=== PATIENT | male | born 1995 | race Caucasian/White ===

== ENCOUNTER 2023-12-07 23:09 | Emergency (ER) | payer SELFPAY ==
[2023-12-07] MEDS ORDERED: NA CHLORIDE 0.9% 1,000 ML ONE (23:43)
[2023-12-07 23:46] LABS: Absolute Basophils 0.1 K/uL (0-0.5); Absolute Lymphocytes (CBC) 1.9 K/uL (0.7-4.9); Absolute Monocytes 0.7 K/uL (0.1-1.3); Absolute Neutrophil 10.4 K/uL (1.8-8.0); Basophils % 0.8 % (0-1.3); Eosinophils % 0.2 % (0-4.4); Hemoglobin 15.5 g/dL (13.6-17.9); Lymphocytes % 14.2 % (15.3-44.8); MCH 29.2 pg (27.0-35.0); MCHC 33.7 g/dL (32.0-36.0); MCV 86.7 fL (80-100); MPV 9.6 fL (7.6-11.3); Monocytes % 5.4 % (3.3-12.3); Neutrophils % 79.4 % (41.7-73.7); Nucleated Red Blood Cells % 0.1 % (0-0); Platelets 213 thou/uL (152-406); RBC Red Blood Cell Count 5.31 M/uL (4.33-5.43); Red Cell Distribution Width 12.8 % (12.1-15.2)
[2023-12-07 23:47] LABS: Specific Gravity 1.019 (1.005-1.030); Urine Bilirubin NEGATIVE (Negative); Urine Blood Negative (Negative); Urine Clarity Clear (Clear); Urine Color Light-Yellow (Yellow); Urine Glucose NEGATIVE (Negative); Urine Ketones 1+ (Negative); Urine Microscopic Reflex YN NO UMIC; Urine Nitrite NEGATIVE (Negative); Urine Protein NEGATIVE (Negative); Urine Urobilinogen Normal (Normal); Urine pH 5.5 (5.0-7.0)
[2023-12-08 00:04] LABS: Albumin 4.7 g/dL (3.4-5.0); Albumin/Globulin Ratio 1.5 (1.1-1.8); Bilirubin Total 0.8 mg/dL (0.2-1.0); Globulin 3.2 g/dL (2.3-3.5); Protein, Total 7.9 g/dL (6.4-8.2)
--- NOTE | 2023-12-08 01:22 | ER ---
Nurse's Notes [facility] Name: Prieto Pike Age: 28 yrs Sex: Male : 1995 Arrival Date: 12/07/2023 Time: 23:09 Bed 19 Private MD: Diagnosis: Unspecified renal colic;Left sided colitis Presentation: 12/06 23:17 Chief complaint: Patient states: lower abdominal pain. Coronavirus screen: At this as6 time, the client does not indicate any symptoms associated with coronavirus-19. Ebola Screen: No symptoms or risks identified at this time. Initial Sepsis Screen: Does the patient meet any 2 criteria? No. Patient's initial sepsis screen is negative. Does the patient have a suspected source of infection? No. Patient's initial sepsis screen is negative. Risk Assessment: Do you want to hurt yourself or someone else? Patient reports no desire to harm self or others. Onset of symptoms was December 06, 2023. 23:17 Method Of Arrival: Ambulatory as6 23:17 Acuity: ABIGAIL 3 as6 Historical: - Allergies: 23:19 No Known Allergies; as6 - PMHx: 23:19 GERD; as6 - PSHx: 23:19 Appendectomy; as6 - Immunization history:: Adult Immunizations up to date. - Infectious Disease History:: Denies. - Social history:: Smoking status: Patient denies any tobacco usage or history of. Screenin:[facility] ED Fall Risk Assessment (Adult) History of falling in the last 3 months, ha1 including since admission No falls in past 3 months (0 pts) Confusion or Disorientation No (0 pts) Intoxicated or Sedated No (0 pts) Impaired Gait No (0 pts) Mobility Assist Device Used No (0 pt) Altered Elimination No (0 pt) Score/Fall Risk Level 0 - 2 = Low Risk Oriented to surroundings, Maintained a safe environment, Educated pt \T\ family on fall prevention, incl call for assistance when getting out of bed, Hourly rounding (assess needs \T\ fall precautionary measures) done. Abuse screen: Denies threats or abuse. Denies injuries from another. Nutritional screening: No deficits noted. Tuberculosis screening: No symptoms or risk factors identified. Assessment: 23:20 General: Appears uncomfortable, Behavior is calm, cooperative. Pain: Complains of pain ha1 in pelvis Pain radiates to right mid back Pain currently is 7 out of 10 on a pain scale. Quality of pain is described as aching. Neuro: Level of Consciousness is awake, alert, obeys commands, Oriented to person, place, time, situation. Cardiovascular: Capillary refill < 3 seconds Patient's skin is warm and dry. Respiratory: Airway is patent Respiratory effort is even, unlabored, Respiratory pattern is regular, symmetrical. GI: Abdomen is round non-distended, Bowel sounds present X 4 quads. Abd is soft and non tender X 4 quads. Reports lower abdominal pain, cramping. : Urine is clear. Derm: Skin is pink, warm \T\ dry. Musculoskeletal: Circulation, motion, and sensation intact. 12/07 00:11 Reassessment: going to CT. ha1 00:29 Reassessment: back from CT. ha1 01:00 Reassessment: Patient and/or family updated on plan of care and expected duration. Pain ha1 level reassessed. Patient is alert, oriented x 3, equal unlabored respirations, skin warm/dry/pink. Patient states feeling better. Patient states symptoms have improved. Vital Signs: 12/06 23:17 BP 150 / 94; Pulse 88; Resp 18 S; Temp 97.5(TE); Pulse Ox 98% on R/A; Weight 81.65 kg as6 (R); Height 5 ft. 5 in. (R); Pain 5/10; 12/07 00:00 BP 131 / 80; Pulse 96; Resp 18 S; Pulse Ox 98% on R/A; ha1 01:00 BP 133 / 87; Pulse 92; Resp 17 S; Pulse Ox 99% on R/A; ha1 12/06 23:17 Body Mass Index 29.95 (81.65 kg, 165.1 cm) as6 12/06 23:17 Pain Scale: Adult as6 ED Course: 12/06 23:15 Patient arrived in ED. im 23:17 Arm band placed on. as6 23:19 Triage completed. as6 23:20 Terri Gray PA-C is PHCP. sb4 23:20 Perry Bland MD is Attending Physician. sb4 23:20 Patient has correct armband on for positive identification. Placed in gown. Bed in low ha1 position. Call light in reach. Side rails up X 1. 23:24 Fabienne Kong, RN is Primary Nurse. ha1 23:38 CBC with Diff Sent. ha1 23:38 CMP Sent. ha1 23:38 Lipase Sent. ha1 23:38 Urinalysis w/ reflexes Sent. ha1 23:40 Inserted saline lock: 20 gauge in left antecubital area, using aseptic technique. Blood ha1 collected. 12/07 00:24 CT Abd/Pelvis - IV Contrast Only In Process Unspecified. EDMS 01:32 No provider procedures requiring assistance completed. IV discontinued, intact, ha1 bleeding controlled, No redness/swelling at site. Pressure dressing applied. 01:33 Provided Education on: follow ups . ha1 Administered Medications: 12/06 23:47 Drug: NS 0.9% IV 1000 ml IV at 1 bolus Per protocol; 1000 mL bolus Route: IV; Rate: 1 ha1 bolus; Site: left antecubital; 12/07 01:00 Follow up: Response: No adverse reaction; IV Status: Completed infusion; IV Intake: ha1 1000ml 01:20 Drug: Ketorolac IVP 30 mg IVP once Route: IVP; Site: right antecubital; ha1 01:30 Follow up: Response: No adverse reaction; Marked relief of symptoms ha1 Medication: 12/06 23:52 VIS not applicable for this client. ha1 Intake: 12/07 01:00 IV: 1000ml; Total: 1000ml. ha1 Outcome: 01:21 Discharge ordered by . sb4 01:32 Discharged to home ambulatory, ha1 01:32 Condition: stable 01:32 Discharge instructions given to patient, Instructed on discharge instructions, follow up and referral plans. Demonstrated understanding of instructions, follow-up care, medications, Prescriptions given X 2, 01:33 Patient left the ED. ha1 Signatures: Dispatcher [employer] EDNC Freddie Alicea RN RN as6 Fabienne Kong RN RN ha1 Terri Gray, PAEdinC PAFatuma sb4 Obdulia Daniels
--- NOTE | 2023-12-08 01:22 | EDPHYS ---
Physician Documentation [facility] Name: Prieto Pike Age: 28 yrs Sex: Male : 1995 Arrival Date: 12/07/2023 Time: 23:09 Bed 19 Private MD: ED Physician Perry Bland HPI: 12/06 23:34 This 28 yrs old Male presents to ER via Ambulatory with complaints of Abdominal Pain, sb4 Groin Pain. 23:34 The patient presents with abdominal pain in the lower abdomen. Onset: The sb4 symptoms/episode began/occurred yesterday. The symptoms do not radiate. Associated signs and symptoms: none. The patient has not experienced similar symptoms in the past. patient reports vague lower abdominal pain that is not associated with any other signs/symptoms. states he was recently treated for non STI related epididymitis with doxycycline, testicular pain has since improved. Historical: - Allergies: 23:19 No Known Allergies; as6 - PMHx: 23:19 GERD; as6 - PSHx: 23:19 Appendectomy; as6 - Immunization history:: Adult Immunizations up to date. - Infectious Disease History:: Denies. - Social history:: Smoking status: Patient denies any tobacco usage or history of. ROS: 23:34 Constitutional: Negative for fever, chills, and weight loss, sb4 23:34 Abdomen/GI: Positive for abdominal pain, 23:34 All other systems are negative, Exam: 23:34 Constitutional: This is a well developed, well nourished patient who is awake, alert, sb4 and in no acute distress. Head/Face: Normocephalic, atraumatic. Eyes: Extra-ocular motions intact. Periorbital areas with no swelling, redness, or edema. ENT: Mucous membranes moist. Cardiovascular: Regular rate and rhythm with a normal S1 and S2. Respiratory: Lungs have equal breath sounds bilaterally, clear to auscultation and percussion. No rales, rhonchi or wheezes noted. No increased work of breathing, no retractions or nasal flaring. Abdomen/GI: Soft, non-tender, no distension. Skin: Warm, dry with normal turgor. Normal color with no rashes, no lesions, and no evidence of cellulitis. MS/ Extremity: Pulses equal, no cyanosis. Neurovascular intact. Full, normal range of motion. Neuro: Awake and alert, GCS 15, oriented to person, place, time, and situation. Motor strength 5/5 in all extremities. Sensory grossly intact. Vital Signs: 23:17 BP 150 / 94; Pulse 88; Resp 18 S; Temp 97.5(TE); Pulse Ox 98% on R/A; Weight 81.65 kg as6 (R); Height 5 ft. 5 in. (R); Pain /; 12/07 00:00 BP 131 / 80; Pulse 96; Resp 18 S; Pulse Ox 98% on R/A; ha1 01:00 BP 133 / 87; Pulse 92; Resp 17 S; Pulse Ox 99% on R/A; ha1 12/06 23:17 Body Mass Index 29.95 (81.65 kg, 165.1 cm) as6 12/06 23:17 Pain Scale: Adult as6 MDM: 12/06 23:20 Patient medically screened. sb4 12/07 01:20 Data reviewed: vital signs, nurses notes, lab test result(s), radiologic studies, and sb4 as a result, I will discharge patient. Counseling: I had a detailed discussion with the patient and/or guardian regarding the historical points, exam findings, and any diagnostic results supporting the discharge/admit diagnosis, lab results, radiology results, to return to the emergency department if symptoms worsen or persist or if there are any questions or concerns that arise at home. 12/06 23:33 Order name: CBC with Diff; Complete Time: 23:59 sb4 12/06 23:33 Order name: CMP; Complete Time: 00:05 sb4 12/06 23:33 Order name: Lipase; Complete Time: 00:05 sb4 12/06 23:33 Order name: Urinalysis w/ reflexes; Complete Time: 23:59 sb4 12/06 23:33 Order name: CT Abd/Pelvis - IV Contrast Only sb4 12/06 23:33 Order name: IV Saline Lock; Complete Time: 23:38 sb4 12/06 23:33 Order name: Labs collected and sent; Complete Time: 23:38 sb4 Administered Medications: 12/06 23:47 Drug: NS 0.9% IV 1000 ml IV at 1 bolus Per protocol; 1000 mL bolus Route: IV; Rate: 1 ha1 bolus; Site: left antecubital; 12/07 01:00 Follow up: Response: No adverse reaction; IV Status: Completed infusion; IV Intake: ha1 1000ml 01:20 Drug: Ketorolac IVP 30 mg IVP once Route: IVP; Site: right antecubital; ha1 01:30 Follow up: Response: No adverse reaction; Marked relief of symptoms ha1 Disposition: 03:15 Co-signature as Attending Physician, Perry Bland MD I agree with the assessment sp4 and plan of care. I reviewed the patient's care provided by the Advanced Practice Provider and agree with the diagnosis and treatment plan. Disposition Summary: 12/08/23 01:21 Discharge Ordered Notes: Location: Home sb4 Problem: new sb4 Symptoms: have improved sb4 Condition: Stable sb4 Diagnosis - Unspecified renal colic sb4 - Left sided colitis sb4 Followup: sb4 - With: Emergency Department - When: As needed - Reason: Trouble breathing, Worsening of condition Discharge Instructions: - Discharge Summary Sheet sb4 - Kidney Stones sb4 - Colitis sb4 Forms: - Work release form ha1 - Antibiotic Education sb4 - Patient Portal Instructions sb4 - Leadership Thank You Letter sb4 Prescriptions: - Flagyl 500 mg Oral Tablet - take 1 tablet ORAL route every 12 hours for 7 days; 14 tablet; Refills: 0, sb4 Product Selection Permitted - Cipro 500 mg Oral Tablet - take 1 tablet ORAL route every 12 hours for 7 days; 14 tablet; Refills: 0, sb4 Product Selection Permitted Signatures: Dispatcher [employer] EDFreddie Lopez RN RN as6 Fabienne Kong RN RN ha1 Terri Gray PAFatuma PAFatuma sb4 Perry Bland MD MD sp4 Corrections: (The following items were deleted from the chart) 12/06 23:33 23:33 CBC+H.LAB.BRZ ordered. EDMS EDMS 23:33 23:33 COMPREHENSIVE METABOLIC PANEL+C.LAB.BRZ ordered. EDMS EDMS 23:33 23:33 LIPASE+C.LAB.BRZ ordered. EDMS EDMS 23:33 23:33 Urinalysis+U.LAB.BRZ ordered. EDMS EDMS
[2023-12-08 01:37] VITALS: TEMP 97.5
[2023-12-08 02:04] VITALS: BP 133/87; O2SAT 99
--- NOTE | 2023-12-08 12:18 | RAD REPORT ---
EXAM DESCRIPTION: CT - Abdomen Pelvis W Contrast - 12/08/2023 6:30 am CLINICAL HISTORY: Abd pain;Flank pain COMPARISON: None Available. TECHNIQUE: CT of the abdomen and pelvis performed following IV administration of iodinated contras t. This exam was performed according to our departmental dose-optimization program, which includes au tomated exposure control, adjustment of the mA and/or kV according to patient size and/or use of iter ative reconstruction technique. FINDINGS: Lung Bases: Minimal dependent atelectasis. Bones: No acute osseous abnormality identified. Abdomen: Liver: Thyromegaly with decreased density. Gallbladder: No calcified gallstones. Spleen, Pancreas, and Adrenal Glands: The spleen, pancreas, and adrenal glands are unremarkable. Kidneys: Mild left hydroureter and hydronephrosis without obstructing calculus. Vasculature: The aorta and IVC have normal caliber and position. The portal vein is patent. The pro ximal visceral and renal arteries are patent. Stomach: The stomach and duodenum have normal course. Other: No free intraperitoneal air. No free fluid or lymphadenopathy. Pelvis: Bladder: Urinary bladder is unremarkable. Bowel: No dilated loops of large or small bowel. Mild wall thickening of the descending colon. Appendix: Prior appendectomy. Pelvis: Prostate is not enlarged. IMPRESSION: 1. Mild left hydroureter and hydronephrosis without obstructing calculus identified. T his may be related to recently passed left ureteral calculus. 2. Mild wall thickening of the descending colon. This could be seen with mild nonspecific colitis. 3. Hepatic steatosis and hepatomegaly. Electronically signed by: Joe Carty DO 12/08/2023 01:12 AM CDT M Due to temporary technical issues with the PACS/Fluency reporting system, reports are being signed by the in house radiologist without review as a courtesy to ensure prompt reporting. The interpreting r adiologist is fully responsible for the content of the report.
== END 2023-12-08 01:33 | disposition home or self-care (01) ==
LOC: ER 23:09
DX: N23 Unspecified renal colic (principal); K51.50 Left sided colitis without complications
CPT/HCPCS: 36415; 74177; 80053; 81003; 83690; 85025; 96361; 96374; 99284; J7030; Q9967